=== PATIENT | male | born 1980 | race Caucasian/White ===

== ENCOUNTER 2018-10-23 10:23 | Day surgery (SDC) | payer BC ==
[~2018-10-23 10:23] MED LIST: CEFAZOLIN 1 GM INJ; ONDANSETRON 4 MG INJ; ROPIVACAINE 0.5 % 30 ML VIAL
[2018-10-23] MEDS: SOD CHLORIDE 0.9% 1,000 ML IV (11:21)
[2018-10-23] MEDS ORDERED: CEFAZOLIN 2 GM/50 ML (PMX) 50 ML IVPB (11:30)
[2018-10-23] MEDS ORDERED: FENTAnyl 50 MCG/ML VIAL ×2 (12:59→14:45)
[2018-10-23] MEDS ORDERED: MIDAZOLAM 1 MG/ML 2 ML INJ (13:00)
[2018-10-23] MEDS ORDERED: METOCLOPRAMIDE 10 MG INJ (13:04)
[2018-10-23] MEDS ORDERED: ROPIVACAINE 0.5 % 30 ML VIAL (13:07)
[2018-10-23] MEDS ORDERED: PROPOFOL 20 ML (13:28)
[2018-10-23] MEDS ORDERED: LIDOCAINE 2% (SDV) 5 ML INJ (13:28)
[2018-10-23] MEDS ORDERED: BUPIVACAINE 0.25%/EPI (SDV) 10 ML INJ (13:57)
[2018-10-23] MEDS ORDERED: BUPIVACAINE 0.5%/EPI (SDV) 30 ML INJ (13:58)
[2018-10-23] MEDS ORDERED: FENTAnyl 50 MCG/ML VIAL IV ×2 (14:00)
[2018-10-23] MEDS ORDERED: ONDANSETRON 4 MG INJ IV (14:00)
[2018-10-23] MEDS ORDERED: HYDROmorphONE 1 MG/5 ML IV SYRINGE IV ×3 (14:00)
[2018-10-23] MEDS ORDERED: KETOROLAC 30 MG INJ IV (14:00)
[2018-10-23] MEDS ORDERED: POLYMYXIN/BACITRACIN 1L IRRIG (14:00)
[2018-10-23] MEDS ORDERED: KETOROLAC 30 MG INJ (14:37)
[2018-10-23] MEDS: BUPIVACAINE 0.25% (MPF) 30 ML INJ (14:43)
[2018-10-23] MEDS: HYDROCODONE/APAP (5/325) TAB PO (16:26)
== END 2018-10-23 16:49 | disposition home or self-care (01) ==
LOC: SDS 10:23
DX: K40.30 Unilateral inguinal hernia, with obstruction, without gangrene, not specified as recurrent (principal)
CPT/HCPCS: 49507